=== PATIENT | male | born 1955 ===

== ENCOUNTER 2016-12-22 21:25 | Inpatient (IN) ==
--- NOTE | 2016-12-22 21:59 | Emergency Department Note ---
Disposition Clinical Impression: Hyponatremia, Hypokalemia Syncope Qualifiers: Syncope type: unspecified Qualified Code(s): R55 - Syncope and collapse Disposition: Admitted As Inpatient Condition: Fair Time of Disposition: 23:28 Syncope HPI - General Chief Complaint: ED Syncope Stated Complaint: synopal episode Source: patient Limitations: no limitations Nursing Notes Reviewed: Yes Vital Signs Reviewed: Yes - History of Present Illness HPI Narrative: Patient is a 61-year-old male complains of syncopal attack of episode happened 30 minutes prior to arrival. Patient states this never happened before. Patient has a past medical history significant for hypertension and nephrectomy of the left kidney secondary to cancer years ago. Currently not undergoing therapy for. Patient states she was playing cards with his friends when it happened. EMS states that he sat down just after taking a cigarette break and his head tilted back and he was out. They laid him onto the floor and someone performed a precordial thump and jolted him up patient does not complain of chest pain or any pain at the moment. Patient states that he feels this slightly buzzed from drinking a few beers. Patient states that he is under stress recently due to family affairs and has not been keeping up on hydration and does not really drink a lot of water. Patient smokes a pack per day and denies illicit drug use. - Related Data Home Medications Medication Instructions Recorded Confirmed Sildenafil Citrate [Viagra] 100 mg PO DAILY PRN 12/24/16 12/24/16 Previous Rx's Medication Instructions Recorded Amlodipine [Norvasc] 10 mg PO DAILY #60 tablet 12/24/16 Lisinopril [Zestril] 20 mg PO DAILY #60 tablet 12/24/16 Allergies Allergy/AdvReac Type Severity Reaction Status Date / Time morphine Allergy Difficulty Verified 12/22/16 21:42 Breathing All systems ED: reviewed and negative except as stated. Constitutional: Denies: fever, chills, weakness Cardiovascular: Reports: edema, syncope. Denies: chest pain, palpitations Respiratory: Denies: cough, dyspnea, wheezes, sputum production Gastrointestinal: Denies: abdominal pain, nausea, vomiting, diarrhea Musculoskeletal: Denies: back pain, neck pain Neurological: Denies: headache, weakness, confusion Past Medical History - Past Medical History Attestation: Yes The following information was validated with the patient. Source: patient Medical history: Reports: cancer, hypertension, renal disease (Cancer) - Social History Smoking Status: Current every day smoker Alcohol use: Reports: occasionally Drug use: Reports: none Physical Exam Vital Signs Temperature 97.4 F L 12/22/16 21:27 Pulse Rate 69 12/22/16 21:27 Respiratory Rate 16 12/22/16 21:27 Blood Pressure 152/91 12/22/16 21:27 O2 Sat by Pulse Oximetry 99 12/22/16 21:27 Temperature 97.4 F L 12/22/16 21:27 Pulse Rate 69 12/22/16 21:27 Respiratory Rate 16 12/22/16 21:27 Blood Pressure 152/91 12/22/16 21:27 O2 Sat by Pulse Oximetry 100 12/22/16 21:37 Oxygen Delivery Oxygen Delivery Room Air -General Appearance: Patient is a 61-year-old male who is alert and oriented 3 and in no acute distress. Patient is lying comfortably in the bed. -Neurological exam: Cranial nerves II-12 intact, no focal deficits observed, strength equal 5/5 bilaterally in upper and lower extremities, cerebellar motion test negative. Negative loss of sensation - Head Head exam: atraumatic, normocephalic, normal inspection - Eye Eye exam: Present: normal appearance, PERRL, EOMI, negative for scleral icterus negative for conjunctival pallor - ENT ENT exam: normal exam, normal oropharynx, mucous membranes moist - Neck Neck exam: Present: normal inspection, full ROM, trachea midline, negative JVD - Chest Chest inspection: Present: Patient has bilateral equal rise and fall of chest wall. Non-tender to palpation. - Respiratory Respiratory exam: Clear to auscultation bilaterally without wheezes rales or rhonchi Cardiovascular Cardiovascular exam: Present: regular rate, normal rhythm, normal heart sounds, without murmurs rubs or gallops. - Abdominal Exam Abdominal exam: Present: soft, nondistended, Non-Tender light and deep palpation in all quadrants. Bowel sounds normoactive throughout all 4 quadrants. Negative for hyper or hyperresonance. - Extremities Exam Extremities exam: Present: normal inspection, full ROM, pulses equal bilateral radial and dorsal pedal. Patient has 1+ pitting edema bilateral lower extremities - Back Exam Back exam: Present: normal inspection, full ROM. Absent: tenderness, CVA tenderness (R), CVA tenderness (L) - Psychiatric Psychiatric exam: Present: normal affect, normal mood - Skin Skin exam: Present: warm, dry, intact, normal color - General Limitations: no limitations General appearance: alert, in no apparent distress Course Course Narrative: Patient seen and examined. EKG, chest x-ray, BNP, CBC, troponin ordered - Reevaluation(s) Reevaluation #1: Patient doing well. No complaints. Patient's labs show hyperkalemia and hyponatremia. Patient sepsis admission and treatment for hypokalemia with potassium supplementation Time: 23:20 - Consultations Consultation #1: Dr. Garcia has accepted for admission to [facility]. 2328hrs. Time: 23:28 Vital Signs Temperature 97.4 F L 12/22/16 21:27 Pulse Rate 69 12/22/16 21:27 Respiratory Rate 16 12/22/16 21:27 Blood Pressure 152/91 12/22/16 21:27 O2 Sat by Pulse Oximetry 99 12/22/16 21:27 Temperature 97.3 F L 12/24/16 11:07 Pulse Rate 61 12/24/16 11:07 Respiratory Rate 16 12/24/16 11:07 Blood Pressure 174/94 12/24/16 11:07 O2 Sat by Pulse Oximetry 99 12/24/16 11:07 Oxygen Delivery Oxygen Delivery Nasal Cannula Syncope - MDM Narrative Medical decision making narrative: Mr. Chilel is a 61-year-old male complains of syncopal attack of episode happened 30 minutes prior to arrival. Patient states this never happened before. Patient has a past medical history significant for hypertension and nephrectomy of the left kidney secondary to cancer years ago but not currently under chemotherapy. Patient's condition is concerning for possible syncope secondary to cardiogenic causes of dysrhythmia, cardiomyopathy, pulmonary causes of PE versus pneumonia, nephrogenic causes or electrolyte abnormalities. Since EKG shows no ischemia, troponin is 0.00, BMP shows hyponatremia at 127, and a hypokalemia at 2.7. Patient started on IV hydration and will be started on potassium supplementation. Patient is being admitted to the hospital accepted by Dr. Garcia. After Jose requests CT head and tox screen which were ordered. Admission was discussed with patient who understands and accepts treatment and plan - Medical Records Medical records reviewed: Yes I reviewed the patient's medical records. - Lab Data Lab results reviewed: Yes I reviewed the patient's lab results. Lab results narrative: Short CBC 12/22/16 Range/Units 22:10 WBC 9.5 (4.3-11.1) K/mcL Hgb 15.4 (12.9-16.9) g/dL Hct 43.3 (37.5-50.1) % Plt Count 257 (140-400) K/mcL Neutrophils # 6.5 (1.6-8.9) K/mcL BMP 12/22/16 Range/Units 22:10 Sodium 125 L (136-145) mEq/L Potassium 2.7 L (3.5-4.5) mEq/L Chloride 90 L (98-109) mEq/L Carbon Dioxide 24 (19-29) mEq/L BUN 10 (8-26) mg/dL Creatinine 0.65 L (0.72-1.25) mg/dL Glucose 106 H (70-99) mg/dL Calcium 8.4 L (8.6-10.8) mg/dL Cardiac Enzymes 12/22/16 Range/Units 22:10 Troponin I 0.00 (0-0.03) ng/mL Result diagrams: 12/24/16 06:18 12/24/16 06:18 Lab Results 12/22/16 12/22/16 12/22/16 Range/Units 22:10 22:10 22:10 WBC 9.5 (4.3-11.1) K/mcL RBC 4.74 (4.19-5.50) M/mcL Hgb 15.4 (12.9-16.9) g/dL Hct 43.3 (37.5-50.1) % MCV 91.4 (83.0-100.0) fL MCH 32.5 (28.0-33.3) pg MCHC 35.6 H (31.6-35.5) g/dL RDW 12.7 (11.5-14.5) % Plt Count 257 (140-400) K/mcL MPV 8.5 L (9.4-12.4) fL Immature Gran % 0.9 (0-4) % Seg Neutrophils % 68.6 % Lymphocytes % 18.8 % Monocytes % 8.7 % Eosinophils % 2.4 % Basophils % 0.6 % Neutrophils # 6.5 (1.6-8.9) K/mcL Lymphocytes # 1.8 (0.6-4.6) K/mcL Monocytes # 0.8 (0.0-1.3) K/mcL Eosinophils # 0.2 (0.0-0.6) K/mcL Basophils # 0.1 (0.0-0.2) K/mcL Sodium 125 L (136-145) mEq/L Potassium 2.7 L (3.5-4.5) mEq/L Chloride 90 L (98-109) mEq/L Carbon Dioxide 24 (19-29) mEq/L BUN 10 (8-26) mg/dL Creatinine 0.65 L (0.72-1.25) mg/dL Est GFR ( Amer) > 60 (> 60) Est GFR (Non-Af Amer) > 60 (> 60) BUN/Creatinine Ratio 15 (6-26) Glucose 106 H (70-99) mg/dL Calculated Osmolality 259 L (280-300) Calcium 8.4 L (8.6-10.8) mg/dL Ionized Calcium (1.15-1.35) mmol/L Phosphorus (2.3-4.7) mg/dL Magnesium (1.6-2.6) mg/dL Total Bilirubin (0.2-1.2) mg/dL AST (5-34) Units/L ALT (0-55) Units/L Alkaline Phosphatase (38-126) Units/L Troponin I 0.00 (0-0.03) ng/mL Serum Total Protein (6.0-8.3) g/dL Albumin (3.5-5.0) g/dL Globulin (2.4-3.5) g/dL Albumin/Globulin Ratio (1.1-2.2) Triglycerides (< 150) mg/dL Cholesterol (< 200) mg/dL LDL Cholesterol, Calc (0-99) mg/dL VLDL Cholesterol, Calc (< 31) mg/dL HDL Cholesterol (40-59) mg/dL Cholesterol/HDL Ratio (0-4.9) Urine Opiates Screen (Pdnzbf=891) ng/mL Ur Barbiturates Screen (Gsildq=939) ng/mL Ur Phencyclidine Scrn (Cutoff=25) ng/mL Ur Amphetamines Screen (Kyvntt=9349) ng/mL U Benzodiazepines Scrn (Xwrncm=042) ng/mL Urine Cocaine Screen (Cutoff= 300) ng/mL U Marijuana (THC) Screen (Cutoff = 50) ng/mL 12/23/16 12/23/16 12/23/16 Range/Units 04:21 04:21 05:02 WBC (4.3-11.1) K/mcL RBC (4.19-5.50) M/mcL Hgb (12.9-16.9) g/dL Hct (37.5-50.1) % MCV (83.0-100.0) fL MCH (28.0-33.3) pg MCHC (31.6-35.5) g/dL RDW (11.5-14.5) % Plt Count (140-400) K/mcL MPV (9.4-12.4) fL Immature Gran % (0-4) % Seg Neutrophils % % Lymphocytes % % Monocytes % % Eosinophils % % Basophils % % Neutrophils # (1.6-8.9) K/mcL Lymphocytes # (0.6-4.6) K/mcL Monocytes # (0.0-1.3) K/mcL Eosinophils # (0.0-0.6) K/mcL Basophils # (0.0-0.2) K/mcL Sodium 129 L (136-145) mEq/L Potassium 3.7 D (3.5-4.5) mEq/L Chloride 96 L (98-109) mEq/L Carbon Dioxide 24 (19-29) mEq/L BUN 7 L (8-26) mg/dL Creatinine 0.69 L (0.72-1.25) mg/dL Est GFR ( Amer) > 60 (> 60) Est GFR (Non-Af Amer) > 60 (> 60) BUN/Creatinine Ratio 10 (6-26) Glucose 109 H (70-99) mg/dL Calculated Osmolality 267 L (280-300) Calcium 8.9 (8.6-10.8) mg/dL Ionized Calcium 1.08 L (1.15-1.35) mmol/L Phosphorus 3.5 (2.3-4.7) mg/dL Magnesium 1.8 (1.6-2.6) mg/dL Total Bilirubin 0.7 (0.2-1.2) mg/dL AST 19 (5-34) Units/L ALT 18 (0-55) Units/L Alkaline Phosphatase 96 (38-126) Units/L Troponin I 0.01 (0-0.03) ng/mL Serum Total Protein 6.4 (6.0-8.3) g/dL Albumin 3.3 L (3.5-5.0) g/dL Globulin 3.1 (2.4-3.5) g/dL Albumin/Globulin Ratio 1.1 (1.1-2.2) Triglycerides 69 (< 150) mg/dL Cholesterol 144 (< 200) mg/dL LDL Cholesterol, Calc 88 (0-99) mg/dL VLDL Cholesterol, Calc 14 (< 31) mg/dL HDL Cholesterol 42 (40-59) mg/dL Cholesterol/HDL Ratio 3.4 (0-4.9) Urine Opiates Screen Negative (Uenpwv=926) ng/mL Ur Barbiturates Screen Negative (Wwunwn=091) ng/mL Ur Phencyclidine Scrn Negative (Cutoff=25) ng/mL Ur Amphetamines Screen Negative (Qsdyrx=4731) ng/mL U Benzodiazepines Scrn Negative (Cfqxkg=722) ng/mL Urine Cocaine Screen Negative (Cutoff= 300) ng/mL U Marijuana (THC) Screen Negative (Cutoff = 50) ng/mL 12/23/16 12/23/16 Range/Units 10:02 16:18 WBC (4.3-11.1) K/mcL RBC (4.19-5.50) M/mcL Hgb (12.9-16.9) g/dL Hct (37.5-50.1) % MCV (83.0-100.0) fL MCH (28.0-33.3) pg MCHC (31.6-35.5) g/dL RDW (11.5-14.5) % Plt Count (140-400) K/mcL MPV (9.4-12.4) fL Immature Gran % (0-4) % Seg Neutrophils % % Lymphocytes % % Monocytes % % Eosinophils % % Basophils % % Neutrophils # (1.6-8.9) K/mcL Lymphocytes # (0.6-4.6) K/mcL Monocytes # (0.0-1.3) K/mcL Eosinophils # (0.0-0.6) K/mcL Basophils # (0.0-0.2) K/mcL Sodium (136-145) mEq/L Potassium (3.5-4.5) mEq/L Chloride (98-109) mEq/L Carbon Dioxide (19-29) mEq/L BUN (8-26) mg/dL Creatinine (0.72-1.25) mg/dL Est GFR ( Amer) (> 60) Est GFR (Non-Af Amer) (> 60) BUN/Creatinine Ratio (6-26) Glucose (70-99) mg/dL Calculated Osmolality (280-300) Calcium (8.6-10.8) mg/dL Ionized Calcium (1.15-1.35) mmol/L Phosphorus (2.3-4.7) mg/dL Magnesium (1.6-2.6) mg/dL Total Bilirubin (0.2-1.2) mg/dL AST (5-34) Units/L ALT (0-55) Units/L Alkaline Phosphatase (38-126) Units/L Troponin I 0.01 0.01 (0-0.03) ng/mL Serum Total Protein (6.0-8.3) g/dL Albumin (3.5-5.0) g/dL Globulin (2.4-3.5) g/dL Albumin/Globulin Ratio (1.1-2.2) Triglycerides (< 150) mg/dL Cholesterol (< 200) mg/dL LDL Cholesterol, Calc (0-99) mg/dL VLDL Cholesterol, Calc (< 31) mg/dL HDL Cholesterol (40-59) mg/dL Cholesterol/HDL Ratio (0-4.9) Urine Opiates Screen (Smsfef=435) ng/mL Ur Barbiturates Screen (Unhzcj=852) ng/mL Ur Phencyclidine Scrn (Cutoff=25) ng/mL Ur Amphetamines Screen (Gdfeuy=6193) ng/mL U Benzodiazepines Scrn (Ovdnpb=357) ng/mL Urine Cocaine Screen (Cutoff= 300) ng/mL U Marijuana (THC) Screen (Cutoff = 50) ng/mL - Radiology Data Radiology results reviewed: Yes I reviewed the patient's radiology results. Chest X-Ray 12/22/16 21:45 IMPRESSION: No acute disease. D/ / Miguel Smallwood MD / Miguel Smallwood MD Interpreting Provider: Miguel Smallwood MD - EKG Data EKG attestation: Yes I reviewed and interpreted this EKG. EKG results narrative: EKG taken at 12/22/2016 at 2133 hrs. shows a sinus rhythm with first-degree AV block at a rate of 66 bpm no signs of ischemia of ST depressions or elevations in any leads. No previous EKG for comparison Attestation Statement - Attestation Attestation: For this encounter, I have reviewed the Resident, STAY CUTTER or PA documentation, treatment plan, and medical decision making; and I have had face to face time with this patient. 61 yo male BIB EMS after a syncopal episode. Pt was playing cards with friends , smoking a cigarette when he suddenly became lightheaded and syncopized. No seizure like activity noted, no seizure history, was not incontinent, did not bite tongue. Did not just stand or have bowel movement. No history of vasovagal syncope in the past. initial trop negative, ECG does not show STEMI. Pt will be admitted to the hospital for further care and evaluation
[2016-12-22 22:18] LABS: Basophils # 0.1 K/mcL (0.0-0.2); Basophils % 0.6 %; Eosinophils # 0.2 K/mcL (0.0-0.6); Eosinophils % 2.4 %; Hematocrit 43.3 % (37.5-50.1); Hemoglobin 15.4 g/dL (12.9-16.9); Immature Granulocytes % 0.9 % (0-4); Lymphocytes # 1.8 K/mcL (0.6-4.6); Lymphocytes % 18.8 %; Mean Corpuscular HGB Conc 35.6 g/dL (31.6-35.5); Mean Corpuscular Hemoglobin 32.5 pg (28.0-33.3); Mean Corpuscular Volume 91.4 fL (83.0-100.0); Mean Platelet Volume 8.5 fL (9.4-12.4); Monocytes # 0.8 K/mcL (0.0-1.3); Monocytes % 8.7 %; Neutrophils # 6.5 K/mcL (1.6-8.9); Platelet Count 257 K/mcL (140-400); Red Blood Count 4.74 M/mcL (4.19-5.50); Red Cell Distribution Width 12.7 % (11.5-14.5); Segmented Neutrophils % 68.6 %
[2016-12-22 22:30] LABS: BUN/Creatinine Ratio 15 (6-26); Blood Urea Nitrogen 10 mg/dL (8-26); Calcium 8.4 mg/dL (8.6-10.8); Carbon Dioxide 24 mEq/L (19-29); Chloride 90 mEq/L (98-109); Glucose 106 mg/dL (70-99); Osmolality,Calculated 259 (280-300); Potassium 2.7 mEq/L (3.5-4.5); Sodium 125 mEq/L (136-145); eGFR For African Americans > 60 (> 60); eGFR For Non-African Americans > 60 (> 60)
[2016-12-23] MEDS ORDERED: Naloxone 0.4 MG/ML INJ IVP PRN (01:18)
[2016-12-23] MEDS ORDERED: Nicotine 21 MG PATCH.TD24 TD PRN (01:30)
--- NOTE | 2016-12-23 01:47 | Event Note ---
Date of Encounter: 12/23/16 Time of Encounter: 01:40 Patient seen and examined with medical claims processor. 61-year-old male lifelong alcoholic who drinks alcohol 6 days a week 4-5 drinks each time, with history of hypertension presents to the emergency room after syncopal episode. Patient was playing cards with his friends. he had several breaths from cigarette and after each time you would have an episode of cough. After one of these episodes patient became unconscious. There was an EMS person present who reportedly checked his pulse and could not find the pulse and gave him a precordial thump after which she regained consciousness completely. Patient does not recall a prodrome prior to the syncopal episode. Does not recall any palpitations chest pain or lightheadedness. Never had any of this episodes before. No incontinence to urine or stool. There was no witnessed seizure activity. There was no confusion after awakening. Remained unconscious for a period of about 1 minute. No prior history of seizures. He drank alcohol today. His girlfriend mentioned that he was under a lot of stress but non suicidal. No prior history of coronary artery disease. IN the emergency room there was no arrhythmias on tele. EKG unremarkable except for first-degree heart block. Patient would be admitted for observation. Differential for the corporate presentation include costing cope versus arrhythmia versus absence seizure. Will continuously monitor the patient for arrhythmias. EEG would be checked. Will ask cardiology service to evaluate the patient. Will hydrate the patient. Workplaces electrolytes. Which echocardiogram carotid Doppler's.
--- NOTE | 2016-12-23 01:52 | Internal Med History&Physical ---
Date of Encounter: 12/23/16 Time of Encounter: 00:51 Assessment and Plan (1) Syncope Current visit: Yes Status: Acute Patient with noted syncope following cough. This may have caused vasovagal syncope. EKG with evidence of first-degree heart block. CT head is without intracranial process. An EMT responded to the patient's syncopal episode and found no pulse. Responder reportedly gave a sternal follow-up and patient awoke. Upon waking patient was confused. However, seizure with post-ictal period cannot be excluded. Plan: EEG in a.m. Cardiac monitoring continuous Corrected electrolyte disturbances (2) Alcohol use disorder Current visit: Yes Status: Acute Patient was drinking today. Therefore, we do not suspect withdrawal at this time. However, should patient's stay continue to 2 or 3 days, we will need to address alcohol withdrawal. Plan: Continue to monitor patient and will consider CIWA as needed Thiamine and Folate supplemenation (3) Hyponatremia Current visit: Yes Status: Acute Hyponatremia is likely due to chronic alcohol use. Plan: Slow correction with NS 125mL/min Continue to monitor electrolytes (4) Hypokalemia Current visit: Yes Status: Acute Hypokalemia is likely due to chronic alcohol use. Plan: 40mEq po potassium given in ED 40mEq po given this evening Continue to monitor electrolytes (5) Hypocalcemia Current visit: Yes Status: Acute (6) Tobacco abuse disorder Current visit: Yes Status: Acute Nicoderm TD patch (7) DVT prophylaxis Current visit: Yes Status: Acute [facility] Internal Medicine - H&P: HPI Chief complaint: syncope Admitted From: Emergency Dept Plans for Post Hospital Care: Home History of present illness: Mr. Chilel is a 61 year old male who presents to the hospital with an episode of syncope. Patient was playing card games with friends, took a jag of his cigarette, and began coughing. The patient's friend, a medic, noticed Mr. Chilel ' loss of consciousness, lowered patient to the ground, and checked a pulse. No pulse was obtained. Medic provided a sternal thump. Patient regained consciousness after 1 or 2 minutes. He states that he awoke feeling "surprised " as if he had had too much caffeine. Patient was able to answer questions appropriately and was oriented to person, place, and time. He was confused. Patient had a few beers this evening. He told ED staff that he felt biased upon arrival to the hospital. Denies headache, chest pain, racing heart, dictations, loss of bladder, loss of bowel. He denies family history of sudden cardiac . Denies history of NE or COPD. He did have a nucear stress test performed 05/10/04, which has been purged from the PCI. He does not recall the results of this test. Patient is undergoing considerable emotional stress due to his daughter being addicted to OxyContin. Patient is a recovering alcoholic and used to drink whiskey. He states that he now drinks 4-5 beers per day, sometimes as much as 8 -10. He drinks 5 out of 7 days of the week. He denies history of withdrawal symptoms such as diaphoresis and seizures following abstinence of alcohol. Patient does admit to having restless legs at night on days when he does not drink alcohol. Past Med Surg Social Fam HX - Past Medical History Medical history: cancer (Left kidney cancer), hypertension, renal disease Psychiatric history: no psych history - Past Surgical History Surgical History: other (Left nephrectomy for cancer) - Social History Smoking Status: Current every day smoker (1 ppd x 25 years) Packs per day: 1 Smokeless Tobacco Status: No Alcohol use: heavy (4-5 beers per day, up to 8-10 days per day, drinks 5 out of 7 days a week) Drug use: none - Family History Father Living Status: Age at : 41 Hx Family Cancer: Yes Mother Living Status: Cause of : 70 Hx Family Cardiac Disorders: Yes Hx Family Cancer: Yes Internal Medicine - H&P: Meds Amlodipine [Norvasc] 5 mg PO DAILY 12/22/16 [History] Lisinopril [Zestril] 10 mg PO DAILY 12/22/16 [History] Allergies morphine Allergy (Verified 12/22/16 21:42) Difficulty Breathing All Systems PM: A 10-system review of systems was performed and is negative for pertinent findings except as documented above in the HPI. Review of systems: As per HPI - Constitutional Vitals: Temp Pulse Resp BP Pulse Ox 97.8 F 65 20 152/93 96 12/23/16 01:03 12/23/16 01:03 12/23/16 01:03 12/23/16 01:03 12/23/16 01:03 General appearance: Present: cooperative, A&O X 3, pleasant, no acute distress, answers questions appropriately - Head Head exam: Present: atraumatic, normal inspection, normocephalic - Eye Eye exam: Present: EOMI, PERRL - Neck Neck exam general surgery: Present: full ROM, normal inspection, supple - Respiratory Respiratory exam: Present: CTAB. Absent: accessory muscle use, respiratory distress, rhonchi, tachypnea - Cardiovascular Cardiovascular exam: Present: RRR, +S1, +S2 - GI/Abdominal GI/Abdominal exam: Present: normal bowel sounds, soft. Absent: tenderness, no peritoneal signs - Neurological Exam Neurological exam: Present: CN II-XII intact, normal gait, no focal deficits, strengths equal and symetr throughout. Absent: pronater drift, facial droop, speech deficit - Psychiatric Psychiatric exam: Present: normal affect, normal mood - Skin Skin exam: Present: erythema (chiki hue to face and neck) Internal Med - H&P Results - Labs CBC & Chem 7: 12/22/16 22:10 12/23/16 04:21 - Impressions Chest X-Ray 12/22/16 21:45 IMPRESSION: No acute disease. D/ / Miguel Smallwood MD / Miguel Smallwood MD Interpreting Provider: Miguel Smallwood MD Head CT 12/22/16 23:25 IMPRESSION: No acute intracranial process identified. D/ / Tulio Ryan MD / Tulio Ryan MD Interpreting Provider: Tulio Ryan MD
[2016-12-23] MEDS: 0.9 % Sodium Chloride 1,000 ML IVC SCH ×2 (02:03→10:06)
[2016-12-23 05:04] LABS: Ionized Calcium 1.08 mmol/L (1.15-1.35)
[2016-12-23] MEDS: *HR* Enoxaparin 40 MG/0.4 ML SYRINGE SQ SCH (05:10)
[2016-12-23 05:17] LABS: Alanine Aminotransferase 18 Units/L (0-55); Albumin 3.3 g/dL (3.5-5.0); Albumin/Globulin Ratio 1.1 (1.1-2.2); Alkaline Phosphatase 96 Units/L (38-126); Aspartate Amino Transferase 19 Units/L (5-34); BUN/Creatinine Ratio 10 (6-26); Bilirubin,Total 0.7 mg/dL (0.2-1.2); Blood Urea Nitrogen 7 mg/dL (8-26); Calcium 8.9 mg/dL (8.6-10.8); Carbon Dioxide 24 mEq/L (19-29); Chloride 96 mEq/L (98-109); Chol/HDL Ratio 3.4 (0-4.9); Cholesterol 144 mg/dL (< 200); Globulin 3.1 g/dL (2.4-3.5); Glucose 109 mg/dL (70-99); HDL Cholesterol 42 mg/dL (40-59); LDL Cholesterol,Calculated 88 mg/dL (0-99); Magnesium 1.8 mg/dL (1.6-2.6); Osmolality,Calculated 267 (280-300); Phosphorous 3.5 mg/dL (2.3-4.7); Potassium 3.7 mEq/L (3.5-4.5); Sodium 129 mEq/L (136-145); Total Protein 6.4 g/dL (6.0-8.3); Triglycerides 69 mg/dL (< 150); eGFR For African Americans > 60 (> 60); eGFR For Non-African Americans > 60 (> 60)
[2016-12-23 05:36] LABS: Amphetamine Screen,Urine Negative ng/mL (Cutoff=1000); Barbiturate Screen,Urine Negative ng/mL (Cutoff=200); Benzodiazepines Screen,Urine Negative ng/mL (Cutoff=200); Cannabinoid Screen,Urine Negative ng/mL (Cutoff = 50); Cocaine Screen,Urine Negative ng/mL (Cutoff= 300); Opiate Screen,Urine Negative ng/mL (Cutoff=300); Phencyclidine Screen,Urine Negative ng/mL (Cutoff=25)
[2016-12-23] MEDS ORDERED: amLODIPine 5 MG TABLET PO SCH (09:00)
[2016-12-23] MEDS: Thiamine (B-1) 100 MG TABLET PO SCH (10:06)
[2016-12-23] MEDS: Folic Acid 1 MG TABLET PO SCH (10:06)
[2016-12-23] MEDS ORDERED: amLODIPine 5 MG TABLET PO ONE (11:51)
--- NOTE | 2016-12-23 14:43 | Electrocardiograph Report ---
[place] [id number] Test Date: 2016-12-22 Pat Name: Rehan Chilel Department: 103 Room: 2A43 Gender: M Echo Vasc Tech: : 1955 Requested By: Jaswinder Abdi Order Number: [id number] Reading MD: Maliha Duke Measurements Intervals [place] Rate: 66 P: 6 UT: 213 QRS: 27 QRSD: 106 T: 36 QT: 446 QTc: 459 Interpretive Statements SINUS RHYTHM WITH FIRST DEGREE AV BLOCK Electronically Signed On 12-23-2016 14:41:37 EST by Maliha Duke
--- NOTE | 2016-12-23 14:50 | Electrocardiograph Report ---
[place] [id number] Test Date: 2016-12-23 Pat Name: Rehan Chilel Department: 112 Room: 2A43 Gender: M Heating And Ventilating Drafter: : 1955 Requested By: Chrissy Segal Order Number: [id number] Reading MD: Maliha Duke Measurements Intervals [place] Rate: 63 P: 19 NH: 208 QRS: 24 QRSD: 94 T: 32 QT: 461 QTc: 469 Interpretive Statements SINUS RHYTHM PROLONGED QT INTERVAL Electronically Signed On 12-23-2016 14:48:29 EST by Maliha Duke
--- NOTE | 2016-12-23 17:12 | Event Note ---
Date of Encounter: 12/23/16 Time of Encounter: 17:03 first encounter. admitted for syncopal episode, possible vasovagal after severe coughing. however as per the history in the chart "he collapsed and there was no pulse , his friend gave him a cardiac thump which brought him back"... not clear if this exactly happened. he says he was alert and oriented and it happened for few seconds. seen at the bedside, he denies any complains at this time. he does have h/o renal cell cancer s/p surgery in the past, no h/o cardiac disease or arrhythmias. CT head is negative for any acute pathology. no arrhythmias in the telemetry. 1s EKG doen shows 1st degree AV block, another EKG shows QT prolongation. reveiwed meds, he is not on any meds to prolong QT interval, mag level is normal at 1.8. will keep him one more day for obs. he is a smoker and drinks beer. labs show hyponatremia which is prob becauase he drinks beer regularly, has imporved mildly with NS. potassium was low which has been replaced. noted to be hypertensive, have increased the amlodipine tp 10 mg. will order ECHO to complete the workup for syncope. no seizure like activities as per the history, will cancel EEG.
[2016-12-24] MEDS: *HR* Enoxaparin 40 MG/0.4 ML SYRINGE SQ SCH (05:52)
[2016-12-24 06:55] LABS: BUN/Creatinine Ratio 18 (6-26); Blood Urea Nitrogen 13 mg/dL (8-26); Calcium 8.8 mg/dL (8.6-10.8); Carbon Dioxide 23 mEq/L (19-29); Chloride 100 mEq/L (98-109); Glucose 95 mg/dL (70-99); Osmolality,Calculated 276 (280-300); Sodium 133 mEq/L (136-145); eGFR For African Americans > 60 (> 60); eGFR For Non-African Americans > 60 (> 60)
[2016-12-24 07:19] LABS: Potassium 3.4 mEq/L (3.5-4.5)
[2016-12-24 07:22] LABS: Basophils # 0.1 K/mcL (0.0-0.2); Basophils % 0.8 %; Eosinophils # 0.3 K/mcL (0.0-0.6); Eosinophils % 3.4 %; Hematocrit 43.1 % (37.5-50.1); Hemoglobin 15.3 g/dL (12.9-16.9); Immature Granulocytes % 0.8 % (0-4); Lymphocytes # 1.9 K/mcL (0.6-4.6); Lymphocytes % 24.3 %; Mean Corpuscular HGB Conc 35.5 g/dL (31.6-35.5); Mean Corpuscular Hemoglobin 32.8 pg (28.0-33.3); Mean Corpuscular Volume 92.3 fL (83.0-100.0); Mean Platelet Volume 8.7 fL (9.4-12.4); Monocytes # 0.9 K/mcL (0.0-1.3); Monocytes % 11.5 %; Neutrophils # 4.6 K/mcL (1.6-8.9); Platelet Count 280 K/mcL (140-400); Red Blood Count 4.67 M/mcL (4.19-5.50); Red Cell Distribution Width 13.2 % (11.5-14.5); Segmented Neutrophils % 59.2 %
[2016-12-24] MEDS: Thiamine (B-1) 100 MG TABLET PO SCH (08:03)
[2016-12-24] MEDS: Folic Acid 1 MG TABLET PO SCH (08:04)
[2016-12-24] MEDS ORDERED: amLODIPine 5 MG TABLET PO SCH (09:00)
--- NOTE | 2016-12-24 10:01 | ECHO - Doppler Report ---
Echocardiogram Name: Rehan Chilel Date of Study: 12/24/2016 Date: 1955 Ht: 72.0 in Medical Record#: [id number] Age: 61 Wt: 202.0 lb Gender: Male BSA: 2.14 Order #: [id number] Location: [facility] Room #: 2A43 Reading Physician: Christian Barrios DO, FACSosa, JAMARCUS CARMICHAEL Hand Turner: EFFIE SealsT, RD Ordering Physician: Yaquelin Rockwell MD Primary Physician: Chin Diallo MD Indications: Syncope Impressions: LVEF 60-65%. Normal LV chamber size and function. Mild left ventricular hypertrophy, which mildy more prominent in the basal septum. Mild left ventricular diastolic dysfunction. Normal right ventricular structure and function. No evidence of pulmonary hypertension. Left Ventricular Wall Motion: Rest Echo Findings All wall segments showed normal motion. Findings: Study Quality * Technically adequate exam. ECG Findings * Normal sinus rhythm. Left Ventricle * LVEF 60-65%. * Normal LV chamber size and function. * Mild left ventricular hypertrophy, which mildy more prominent in the basal septum. * Mild left ventricular diastolic dysfunction. Right Ventricle * Normal right ventricular structure and function. Left Atrium * Mild to moderately dilated left atrium. Right Atrium * Mildly dilated right atrium. Interatrial Septum * Interatrial septum not well evaluated. Aortic Valve * Aortic valve not well visualized. * Trileaflet aortic valve. * No aortic regurgitation. * No aortic stenosis. Mitral Valve * Mild posterior mitral annular calcification with mild subvavluar thickening. * Mildly thickened mitral valve leaflets. * Trace mitral regurgitation. * No mitral stenosis. Tricuspid Valve * Normal tricuspid valve structure and function. * Trace tricuspid regurgitation. * No evidence of pulmonary hypertension. Pulmonic Valve * Pulmonic valve not well visualized. * No pulmonic regurgitation. Aorta * Normally sized aortic root. Pericardium * The pericardium appears normal. IVC * Normal IVC dimensions and inspiratory collapse. Pulmonary Artery * Normal visualized portions of the main pulmonary artery. History Hypertension History of Smoking Years 24 Packs 1 Family History of CAD Measurements: BP: 152/ 82 2D Normal Values IVSd: 1.40 cm 0.6 - 1.0 cm LVIDd: 5.30 cm 3.7 - 5.6 cm LVPWd: 1.20 cm 0.6 - 1.1 cm LVIDs: 2.80 cm 1.5 - 3.6 cm AO: 2.90 cm < 4.0 cm LA: 4.20 cm 2.0 - 4.0cm %FS: 47.20 cm >25 % LA volume: 67 Mitral Valve Peak E:.86 m/sec Peak A:.88 m/sec E/A Ratio:1 Tricuspid Valve TV Regurg Peak Grad: 23.00mmHg TV Regurg Peak Devante: 2.39m/sec Updated by Christian Barrios DO, FACSosa, AMOL, FASHENNA on 12/24/2016 9:54:51 AM electronically signed on 12/24/2016 9:55:36 AM with status of Final Wall Motion Steven: 1=Normal, 2=Hypokinesis, 3=Akinesis, 4=Dyskinesis, 5=Aneurysmal, 6=Hyperkinetic, X=Not Visualized (Blank)=Missing
[2016-12-24 11:10] VITALS: BP 174/94
[2016-12-24] MEDS ORDERED: Beer can PO SCH (12:00)
--- NOTE | 2016-12-24 16:11 | Discharge Summary ---
Date of Encounter: 12/31/16 Time of Encounter: 16:08 - Discharge Diagnosis (1) Alcohol use disorder Priority: Secondary Status: Acute (2) Hypokalemia Priority: Primary Status: Acute (3) Hyponatremia Priority: Primary Status: Acute (4) Syncope Priority: Primary Status: Acute Qualifiers: Syncope type: unspecified Qualified Code(s): R55 - Syncope and collapse - Discharge Medications Prescriptions: Amlodipine [Norvasc] 10 mg PO DAILY #60 tablet Lisinopril [Zestril] 20 mg PO DAILY #60 tablet Home Medications: Amlodipine [Norvasc] 10 mg PO DAILY #60 tablet 12/24/16 [Rx] Lisinopril [Zestril] 20 mg PO DAILY #60 tablet 12/24/16 [Rx] Sildenafil Citrate [Viagra] 100 mg PO DAILY PRN 12/24/16 [History] Allergies/Adverse Reactions: Allergies morphine Allergy (Verified 12/22/16 21:42) Difficulty Breathing Procedures/tests Complete & Pending: Procedures Performed prior 72 hours Category Date Time Status EV echocardiogram Routine Y 12/24/16 07:46 Completed Date of admission: 12/23/16 19:51 Primary care physician: Chin Diallo Jr, MD Consults: 12/24/16 08:12 Consult to Informaticist [CONS] Routine Reason for SW Consult: financial resources and alcohol abuse resources Discharging clinician: Gracie Rockwell Anticipated date of discharge: 12/24/16 - Patient Status Disposition: Home, Self-Care Condition: Fair Functional capacity at discharge: independent ambulation Overall status at discharge: patient is back to baseline - Discharge Instructions Instructions: Lisinopril (By mouth), Amlodipine (By mouth), Syncope (DC) Follow Up With: Chin Diallo Jr, MD [Primary Care Provider] - 01/02/17 9:30 am (Web Request..... Please follow up as schedule) - Diet and Activity Activity: resume usual activities as tolerated Diet: advance to your usual diet Interval History: patient is admitted for syncopal episode, possible vasovagal after severe coughing. however as per the history in the chart "he collapsed and there was no pulse , his friend gave him a cardiac thump which brought him back"... not clear if this exactly happened. he says he was alert and oriented and it happened for few seconds. seen at the bedside, he denies any complains at this time. he does have h/o renal cell cancer s/p surgery in the past, no h/o cardiac disease or arrhythmias. CT head is negative for any acute pathology. no arrhythmias in the telemetry. 1s EKG doen shows 1st degree AV block, another EKG shows QT prolongation. reveiwed meds, he is not on any meds to prolong QT interval, mag level is normal at 1.8. he was observed for 1 day he is a smoker and drinks beer. labs show hyponatremia which is prob becauase he drinks beer regularly, has imporved mildly with NS. potassium was low which has been replaced. noted to be hypertensive, have increased the amlodipine tp 10 mg. echo does not show any major pathology for syncope. no seizure like activities as per the history. he is being dc in stable condition and will follow up with PCP. Hospital course: Mr. Chilel is a 61 year old male Time spent discussing smoking cessation with patient: more than 10 minutes - Time Spent with Patient Total time spent providing and/or coordinating discharge services: Greater than 30 minutes - Constitutional Vitals: Temp Pulse Resp BP Pulse Ox 97.3 F L 61 16 174/94 99 12/24/16 11:07 12/24/16 11:07 12/24/16 11:07 12/24/16 11:07 12/24/16 11:07 General appearance: Present: cooperative, A&O X 3, pleasant, no acute distress, answers questions appropriately Exam: neck- supple chest- b/l clear, no added sounds cvs-s1 and s2, no m/r/g abd-soft, non tender, bs are present ext- no edema
== END 2016-12-24 16:46 | disposition home or self-care (01) | DRG 312 ==
LOC: EMEROO 21:25 → INTOOBSV 23:45 → 2ANU 23:45
PROVIDERS: ADMIT Hospitalist; ATTEND Internal Medicine Endocrinology, Diabetes & Metabolism